=== PATIENT | female | born 1985 | race Caucasian/White ===

== ENCOUNTER → 2017-10-11 | Outpatient (CLI) | payer MEDICARE, MEDICAID ==
[2015-01-25 10:28] VITALS: BMI 40.0
[~2017-10-11] MED LIST: AA/A14DR7 OT; CEP500 PO; FLUO40CA76 PO; IBUP-1687 PO; ISOM1CAP94 PO; KET10 PO; LEVO-85 PO; LEVO125T77 PO; LOR5 PO; NAPR220C12 PO; NORE-45 PO; NORG1TAB75 PO; OMEG500C7 PO; OXYC-865 PO; TAMS0.4C25 PO; TRAZ50 PO; vit e
--- NOTE | 2017-10-11 15:29 | RADIOLOGY IMAGING REPORT ---
FACILITY: [facility] PATIENT NAME: KEYLA HARVEY : [id number] MR: [id number]: [id number] EXAM DATE: ORDERING PHYSICIAN: KAITLIN ALEX TECHNOLOGIST: Maday Sampson PROCEDURE:BILATERAL DIGITAL SCREENING MAMMOGRAM WITH CAD ASSISTED INTERPRETATION & 3D TOMOSYNTHESIS COMPARISON:Prior mammograms 10/02/16, 08/26/15, 09/20/14 INDICATIONS:SCREENING FINDINGS: Moderately dense fibroglandular tissue is seen throughout the breasts. The parenchymal pattern has remained stable allowing for difference in mammographic technique & patient positioning. There is no evidence of malignant appearing mass, malignant appearing calcifications or other secondary sign of malignancy in either breast. DIAGNOSTIC CATEGORY 1--NEGATIVE. RECOMMENDATIONS: CLINICAL EVALUATION. IMPRESSION: BIRADS 1: Negative No significant abnormality is seen. Dictated by: Rosa Roche M.D. on 10/11/2017 at 15:21 Transcribed by: [email or web address] on 10/11/2017 at 15:27 Approved by: Rosa Roche M.D. on 10/11/2017 at 15:28 [facility]
== END ==
LOC: MAMO 00:23
PROVIDERS: ATTEND Nurse Practitioner Family
DX: Z12.31 Encounter for screening mammogram for malignant neoplasm of breast (principal)
CPT/HCPCS: 77063; 77067